=== PATIENT | male | born 1980 | race Caucasian/White ===

== ENCOUNTER 2017-07-18 21:41 | Emergency (ER) | payer OTHER | END 2017-07-18 23:59 | disposition home or self-care (01) | LOC: FTE 23:59 | DX: H66.91 Otitis media, unspecified, right ear (principal) | CPT/HCPCS: 99283 ==

== ENCOUNTER 2018-10-20 23:43 | Inpatient (IN) | payer OTHER ==
[2018-10-21] MEDS: ONDANSETRON 4 MG INJ IV (00:32)
[2018-10-21] MEDS: morphine 4 MG/ML VIAL IV (00:32)
[2018-10-21] MEDS: SODIUM CHLORIDE 0.9% 1L BAG IV* (00:33)
[2018-10-21 00:42] LABS: ADD MAN DIFF? NO
[2018-10-21 00:47] LABS: WHITE BLOOD COUNT 21.2 10^3/ul (4.8-10.8)
[2018-10-21 00:47] LABS: BASOPHIL # 0.1 10^3/ul (0.0-0.1); BASOPHILS % 0.3 % (0.0-2.0); HEMATOCRIT 42.4 % (42.0-52.0); HEMOGLOBIN 14.8 g/dl (14.0-18.0); LYMPHOCYTES # 1.2 10^3/ul (0.8-2.9); LYMPHOCYTES % 5.6 % (15.0-51.0); MEAN CORPUSCULAR HEMOGLOBIN 30.6 pg (29.0-33.0); MEAN CORPUSCULAR HGB CONC 34.9 g/dl (32.0-37.0); MEAN CORPUSCULAR VOLUME 87.6 fl (82.0-101.0); MEAN PLATELET VOLUME 8.3 fl (7.4-10.4); MONOCYTE # 1.4 10^3/ul (0.3-0.9); MONOCYTES % 6.5 % (0.0-11.0); NEUTROPHIL # 18.4 10^3/ul (1.6-7.5); NEUTROPHILS % 86.9 % (39.0-77.0); PLATELET COUNT 453 10^3/UL (140-415); RED BLOOD COUNT 4.84 10^6/ul (4.70-6.10)
[2018-10-21 01:04] LABS: ALANINE AMINOTRANSFERASE 37 IU/L (13-69); ALBUMIN 4.1 g/dl (3.3-4.9); ALBUMIN/GLOBULIN RATIO 0.93; ALKALINE PHOSPHATASE 182 IU/L (42-121); ANION GAP 13 (5-13); ASPARTATE AMINO TRANSFERASE 40 IU/L (15-46); BILIRUBIN,INDIRECT 0.9 mg/dl (0-1.1); BILIRUBIN,TOTAL 0.9 mg/dl (0.2-1.3); BLOOD UREA NITROGEN 9 mg/dl (7-20); CALCIUM 9.7 mg/dl (8.4-10.2); CARBON DIOXIDE 31 mmol/L (21-31); CHLORIDE 90 mmol/L (97-110); CREATININE 0.75 mg/dl (0.61-1.24); Estimated GFR > 60 mL/min (>60); GLUCOSE 124 mg/dl (70-220); LIPASE 59 U/L (23-300); POTASSIUM 4.1 mmol/L (3.5-5.1); SODIUM 134 mmol/L (135-144); TOTAL PROTEIN 8.5 g/dl (6.1-8.1)
[2018-10-21] MEDS: SOD CHLORIDE 0.9% 500 ML IV (01:05)
[2018-10-21 01:07] LABS: INR 1.18; PARTIAL THROMBOPLASTIN TIME 33.5 Sec (23.0-35.0); PROTIME 15.1 Sec (11.9-14.9); PT RATIO 1.2
[2018-10-21 01:15] LABS: TROPONIN-I < 0.012 ng/ml (0.000-0.120)
[2018-10-21] MEDS: PIPER-TAZO 3.375 GM IV (PMX) 100 ML IVPB ×4 (01:45→20:37)
[2018-10-21] MEDS ORDERED: HYDROmorphONE 1 MG/ML SYG (02:09)
[2018-10-21] MEDS: HYDROmorphONE 1 MG/ML SYG IV (02:14)
[2018-10-21] MEDS: VANCOMYCIN 1 GM (PMX) 250 ML IVPB (02:33)
[2018-10-21] MEDS ORDERED: ONDANSETRON 4 MG INJ IV ×3 (03:00→18:00)
[2018-10-21] MEDS: SOD CHLORIDE 0.9% 1,000 ML IV ×2 (03:27→15:54)
[2018-10-21] MEDS ORDERED: VANCOMYCIN IV PER PHARMACY XX (03:30)
[2018-10-21] MEDS ORDERED: ALBUTEROL/IPRATROPIUM (NEB) 3 ML AMP HHN (04:00)
[2018-10-21] MEDS: morphine 2 MG INJ IV ×2 (04:19→08:25)
[2018-10-21] MEDS: morphine 10 MG INJ IV ×3 (05:47→13:57)
[2018-10-21 06:10] LABS: LACTIC ACID 2.6 mmol/L (0.5-2.0)
[2018-10-21] MEDS: IOHEXOL 300MG/ML 150 ML BTL (13:25)
[2018-10-21] MEDS: SOD CHLORIDE 0.9% 100 ML (13:25)
[2018-10-21] MEDS: VANCOMYCIN HCL 1.25 GM in SOD CHLORIDE 0.9% 250 ML IVPB (13:59)
[2018-10-21] MEDS ORDERED: FENTAnyl 50 MCG/ML VIAL (17:50)
[2018-10-21] MEDS ORDERED: ONDANSETRON 4 MG INJ (17:50)
[2018-10-21] MEDS ORDERED: DEXAMETHASONE 4 MG/ML 5 ML INJ (17:50)
[2018-10-21] MEDS ORDERED: ROCURONIUM 50 MG INJ (17:50)
[2018-10-21] MEDS ORDERED: PROPOFOL 20 ML (17:50)
[2018-10-21] MEDS ORDERED: CEFAZOLIN 1 GM INJ (17:50)
[2018-10-21] MEDS ORDERED: MIDAZOLAM 1 MG/ML 2 ML INJ (17:50)
[2018-10-21] MEDS ORDERED: NEOSTIGMINE 3 MG/3 ML SYRINGE (17:50)
[2018-10-21] MEDS ORDERED: GLYCOPYRROLATE 0.4 MG INJ (17:50)
[2018-10-21] MEDS ORDERED: FENTAnyl 50 MCG/ML VIAL IV ×3 (18:00)
[2018-10-21] MEDS ORDERED: TRIMETHOBENZAMIDE 100 MG/ML VIAL IM (18:00)
[2018-10-21] MEDS ORDERED: LABETALOL HCL 20MG INJ IV (18:00)
[2018-10-21] MEDS ORDERED: DESFLURANE 15 MIN (18:00)
[2018-10-21] MEDS ORDERED: MEPERIDINE 25 MG INJ IV (18:00)
[2018-10-21] MEDS ORDERED: HYDROmorphONE 1 MG/5 ML IV SYRINGE IV ×3 (18:00)
[2018-10-21] MEDS ORDERED: DIPHENHYDRAMINE 50 MG INJ IV (18:00)
[2018-10-21] MEDS ORDERED: OXYCODONE/ACETAMINOPHEN (5/325) TAB PO ×2 (18:00)
[2018-10-21] MEDS ORDERED: hydrALAzine 20 MG INJ IV (18:00)
[2018-10-21] MEDS ORDERED: ALBUTEROL 0.083% (NEB) 2.5 MG/3 ML AMP HHN (18:00)
[2018-10-21] MEDS ORDERED: ACETAMINOPHEN 325 MG TAB PO (18:00)
[2018-10-21] MEDS ORDERED: EPHEDrine 25 MG/5 ML SYG IV (18:00)
[2018-10-21] MEDS ORDERED: IPRATROPIUM (NEB) 0.5 MG/2.5 ML AMP HHN (18:00)
[2018-10-21] MEDS: MIDAZOLAM 1 MG/ML 2 ML INJ IV (18:47)
[2018-10-21] MEDS: D5-NS + KCL 20 MEQ 1,000 ML IV (20:37)
[2018-10-22] MEDS: PIPER-TAZO 3.375 GM IV (PMX) 100 ML IVPB ×4 (00:38→17:54)
[2018-10-22] MEDS: morphine 2 MG INJ IV ×9 (00:39→23:10)
[2018-10-22] MEDS: VANCOMYCIN HCL 1.25 GM in SOD CHLORIDE 0.9% 250 ML IVPB ×2 (02:40→14:17)
[2018-10-22 05:48] LABS: ADD MAN DIFF? NO
[2018-10-22 05:54] LABS: WHITE BLOOD COUNT 14.1 10^3/ul (4.8-10.8)
[2018-10-22 05:54] LABS: BASOPHILS % 0.3 % (0.0-2.0); EOSINOPHILS # 0.1 10^3/ul (0.0-0.5); EOSINOPHILS % 0.4 % (0.0-7.0); HEMATOCRIT 33.2 % (42.0-52.0); LYMPHOCYTES # 1.6 10^3/ul (0.8-2.9); LYMPHOCYTES % 11.1 % (15.0-51.0); MEAN CORPUSCULAR HEMOGLOBIN 30.1 pg (29.0-33.0); MEAN CORPUSCULAR HGB CONC 33.1 g/dl (32.0-37.0); MEAN CORPUSCULAR VOLUME 90.7 fl (82.0-101.0); MEAN PLATELET VOLUME 8.5 fl (7.4-10.4); MONOCYTE # 1.3 10^3/ul (0.3-0.9); MONOCYTES % 8.9 % (0.0-11.0); NEUTROPHIL # 11.1 10^3/ul (1.6-7.5); NEUTROPHILS % 78.7 % (39.0-77.0); PLATELET COUNT 413 10^3/UL (140-415); RED BLOOD COUNT 3.66 10^6/ul (4.70-6.10); RED CELL DISTRIBUTION WIDTH 12.7 % (11.5-14.5)
[2018-10-22] MEDS: ENOXAPARIN 40 MG/0.4 ML SYG SC (06:06)
[2018-10-22] MEDS: D5-NS + KCL 20 MEQ 1,000 ML IV ×3 (06:09→20:21)
[2018-10-22 06:29] LABS: ALANINE AMINOTRANSFERASE 27 IU/L (13-69); ALBUMIN 2.7 g/dl (3.3-4.9); ALBUMIN/GLOBULIN RATIO 0.87; ALKALINE PHOSPHATASE 96 IU/L (42-121); ANION GAP 8 (5-13); ASPARTATE AMINO TRANSFERASE 27 IU/L (15-46); BILIRUBIN,INDIRECT 0.3 mg/dl (0-1.1); BILIRUBIN,TOTAL 0.3 mg/dl (0.2-1.3); BLOOD UREA NITROGEN 14 mg/dl (7-20); CALCIUM 7.8 mg/dl (8.4-10.2); CARBON DIOXIDE 29 mmol/L (21-31); CHLORIDE 99 mmol/L (97-110); CREATININE 0.88 mg/dl (0.61-1.24); Estimated GFR > 60 mL/min (>60); GLUCOSE 86 mg/dl (70-220); MAGNESIUM 1.8 mg/dl (1.7-2.5); PHOSPHORUS 3.8 mg/dl (2.5-4.9); POTASSIUM 3.9 mmol/L (3.5-5.1); SODIUM 136 mmol/L (135-144); TOTAL PROTEIN 5.8 g/dl (6.1-8.1)
[2018-10-22 06:46] LABS: HEMOGLOBIN A1C 5.7 % (0-5.9)
[2018-10-22 06:51] LABS: THYROID STIMULATING HORMONE 0.541 MIU/L (0.465-4.680)
[2018-10-22 14:03] LABS: VANCOMYCIN,TROUGH 5.8 ug/ml (10.0-20.0)
[2018-10-22] MEDS: HYDROCODONE/APAP (10/325) TAB PO (18:18)
[2018-10-22] MEDS: LORAZEPAM 2 MG INJ IV (18:40)
[2018-10-22] MEDS: VANCOMYCIN 1 GM 250 ML IVPB (21:04)
[2018-10-23] MEDS: PIPER-TAZO 3.375 GM IV (PMX) 100 ML IVPB ×4 (00:36→18:14)
[2018-10-23] MEDS: LORAZEPAM 2 MG INJ IV ×4 (00:36→22:59)
[2018-10-23] MEDS: morphine 2 MG INJ IV ×5 (02:52→17:00)
[2018-10-23 05:57] LABS: ADD MAN DIFF? NO
[2018-10-23 06:02] LABS: WHITE BLOOD COUNT 14.9 10^3/ul (4.8-10.8)
[2018-10-23 06:02] LABS: ABNORMAL IP MESSAGE 1; BASOPHIL # 0.1 10^3/ul (0.0-0.1); BASOPHILS % 0.5 % (0.0-2.0); EOSINOPHILS # 0.2 10^3/ul (0.0-0.5); EOSINOPHILS % 1.5 % (0.0-7.0); HEMOGLOBIN 11.2 g/dl (14.0-18.0); LYMPHOCYTES # 1.6 10^3/ul (0.8-2.9); MEAN CORPUSCULAR HEMOGLOBIN 30.8 pg (29.0-33.0); MEAN CORPUSCULAR HGB CONC 33.9 g/dl (32.0-37.0); MEAN CORPUSCULAR VOLUME 90.7 fl (82.0-101.0); MEAN PLATELET VOLUME 8.4 fl (7.4-10.4); MONOCYTE # 1.6 10^3/ul (0.3-0.9); MONOCYTES % 10.5 % (0.0-11.0); NEUTROPHIL # 11.3 10^3/ul (1.6-7.5); NEUTROPHILS % 75.8 % (39.0-77.0); PLATELET COUNT 415 10^3/UL (140-415); POSITIVE DIFF @See below; RED BLOOD COUNT 3.64 10^6/ul (4.70-6.10); RED CELL DISTRIBUTION WIDTH 12.2 % (11.5-14.5)
[2018-10-23] MEDS: VANCOMYCIN 1 GM 250 ML IVPB ×3 (06:09→22:06)
[2018-10-23] MEDS: ENOXAPARIN 40 MG/0.4 ML SYG SC (06:13)
[2018-10-23 06:26] LABS: ANION GAP 6 (5-13); BLOOD UREA NITROGEN 7 mg/dl (7-20); CALCIUM 8.1 mg/dl (8.4-10.2); CARBON DIOXIDE 28 mmol/L (21-31); CHLORIDE 105 mmol/L (97-110); CREATININE 0.63 mg/dl (0.61-1.24); Estimated GFR > 60 mL/min (>60); GLUCOSE 99 mg/dl (70-220); POTASSIUM 3.3 mmol/L (3.5-5.1); SODIUM 139 mmol/L (135-144)
[2018-10-23] MEDS: POTASSIUM CHLORIDE (SR) 20 MEQ TAB PO (13:42)
[2018-10-23] MEDS: D5-NS + KCL 20 MEQ 1,000 ML IV ×2 (14:48→23:01)
[2018-10-23] MEDS: HYDROCODONE/APAP (10/325) TAB PO (20:24)
[2018-10-23 21:42] LABS: VANCOMYCIN,TROUGH 9.4 ug/ml (10.0-20.0)
[2018-10-24] MEDS: PIPER-TAZO 3.375 GM IV (PMX) 100 ML IVPB ×3 (00:33→12:37)
[2018-10-24] MEDS: morphine 2 MG INJ IV ×4 (04:33→21:46)
[2018-10-24 05:25] LABS: ADD MAN DIFF? NO
[2018-10-24 05:29] LABS: WHITE BLOOD COUNT 17.3 10^3/ul (4.8-10.8)
[2018-10-24 05:30] LABS: ABNORMAL IP MESSAGE 1; BASOPHIL # 0.1 10^3/ul (0.0-0.1); BASOPHILS % 0.3 % (0.0-2.0); EOSINOPHILS # 0.2 10^3/ul (0.0-0.5); EOSINOPHILS % 1.4 % (0.0-7.0); HEMATOCRIT 32.5 % (42.0-52.0); HEMOGLOBIN 10.8 g/dl (14.0-18.0); LYMPHOCYTES # 1.5 10^3/ul (0.8-2.9); LYMPHOCYTES % 8.9 % (15.0-51.0); MEAN CORPUSCULAR HEMOGLOBIN 29.6 pg (29.0-33.0); MEAN CORPUSCULAR HGB CONC 33.2 g/dl (32.0-37.0); MEAN PLATELET VOLUME 8.2 fl (7.4-10.4); MONOCYTE # 1.6 10^3/ul (0.3-0.9); MONOCYTES % 9.5 % (0.0-11.0); NEUTROPHIL # 13.7 10^3/ul (1.6-7.5); NEUTROPHILS % 78.8 % (39.0-77.0); PLATELET COUNT 428 10^3/UL (140-415); POSITIVE DIFF @See below; RED BLOOD COUNT 3.65 10^6/ul (4.70-6.10); RED CELL DISTRIBUTION WIDTH 12.4 % (11.5-14.5)
[2018-10-24] MEDS: LORAZEPAM 2 MG INJ IV ×3 (05:56→23:53)
[2018-10-24 05:59] LABS: ANION GAP 7 (5-13); BLOOD UREA NITROGEN 3 mg/dl (7-20); CALCIUM 8.2 mg/dl (8.4-10.2); CARBON DIOXIDE 25 mmol/L (21-31); CHLORIDE 106 mmol/L (97-110); CREATININE 0.65 mg/dl (0.61-1.24); Estimated GFR > 60 mL/min (>60); GLUCOSE 109 mg/dl (70-220); POTASSIUM 3.7 mmol/L (3.5-5.1); SODIUM 138 mmol/L (135-144)
[2018-10-24] MEDS: VANCOMYCIN HCL 1.25 GM in SOD CHLORIDE 0.9% 250 ML IVPB (06:21)
[2018-10-24] MEDS: ENOXAPARIN 40 MG/0.4 ML SYG SC (06:27)
[2018-10-24] MEDS: HYDROCODONE/APAP (10/325) TAB PO ×2 (07:42→18:21)
[2018-10-24] MEDS: LEVOFLOXACIN 750 MG TABLET PO (14:56)
[2018-10-24] MEDS: CEFAZOLIN 1 GM/50 ML (PMX) 50 ML IVPB ×2 (18:15→23:53)
[2018-10-25] MEDS: morphine 2 MG INJ IV ×6 (01:18→22:17)
[2018-10-25] MEDS: HYDROCODONE/APAP (10/325) TAB PO ×2 (03:43→20:48)
[2018-10-25 05:35] LABS: ADD MAN DIFF? NO
[2018-10-25 05:41] LABS: BASOPHIL # 0.1 10^3/ul (0.0-0.1); BASOPHILS % 0.4 % (0.0-2.0); EOSINOPHILS # 0.2 10^3/ul (0.0-0.5); EOSINOPHILS % 1.4 % (0.0-7.0); HEMATOCRIT 31.4 % (42.0-52.0); HEMOGLOBIN 10.5 g/dl (14.0-18.0); LYMPHOCYTES # 1.8 10^3/ul (0.8-2.9); LYMPHOCYTES % 12.3 % (15.0-51.0); MEAN CORPUSCULAR HEMOGLOBIN 30.6 pg (29.0-33.0); MEAN CORPUSCULAR HGB CONC 33.4 g/dl (32.0-37.0); MEAN CORPUSCULAR VOLUME 91.5 fl (82.0-101.0); MEAN PLATELET VOLUME 8.2 fl (7.4-10.4); MONOCYTE # 1.3 10^3/ul (0.3-0.9); MONOCYTES % 8.6 % (0.0-11.0); NEUTROPHIL # 11.1 10^3/ul (1.6-7.5); NEUTROPHILS % 76.2 % (39.0-77.0); PLATELET COUNT 395 10^3/UL (140-415); RED BLOOD COUNT 3.43 10^6/ul (4.70-6.10); RED CELL DISTRIBUTION WIDTH 12.8 % (11.5-14.5)
[2018-10-25 05:41] LABS: WHITE BLOOD COUNT 14.6 10^3/ul (4.8-10.8)
[2018-10-25] MEDS: CEFAZOLIN 1 GM/50 ML (PMX) 50 ML IVPB ×4 (06:16→23:57)
[2018-10-25] MEDS: LEVOFLOXACIN 750 MG TABLET PO (06:16)
[2018-10-25] MEDS: ENOXAPARIN 40 MG/0.4 ML SYG SC (06:22)
[2018-10-25] MEDS: NACL 0.9% 3 ML SYG IV (08:32)
[2018-10-25] MEDS: LORAZEPAM 2 MG INJ IV ×3 (11:43→23:57)
[2018-10-26] MEDS: morphine 2 MG INJ IV ×3 (03:32→11:39)
[2018-10-26] MEDS: HYDROCODONE/APAP (10/325) TAB PO (04:05)
[2018-10-26] MEDS: LEVOFLOXACIN 750 MG TABLET PO (06:15)
[2018-10-26] MEDS: CEFAZOLIN 1 GM/50 ML (PMX) 50 ML IVPB ×2 (06:15→11:46)
[2018-10-26] MEDS: ENOXAPARIN 40 MG/0.4 ML SYG SC (06:16)
[2018-10-26] MEDS: LORAZEPAM 2 MG INJ IV ×2 (06:20→12:34)
[2018-10-26] MEDS: NACL 0.9% 3 ML SYG IV (11:46)
== END 2018-10-26 14:45 | disposition left against medical advice (07) | DRG 853 ==
LOC: E/R 23:43 → 2NE 10-21 02:21
PROVIDERS: Internal Medicine
PROC: 0J990ZZ Drainage of Buttock Subcutaneous Tissue and Fascia, Open Approach (ICD-10-PCS; principal; 2018-10-21 17:46)
DX: A41.9 Sepsis, unspecified organism (principal); J18.9 Pneumonia, unspecified organism; L02.31 Cutaneous abscess of buttock; F11.20 Opioid dependence, uncomplicated; Z72.0 Tobacco use
CPT/HCPCS: 71045; 73510; 74177; 80048; 80053; 80202; 83036; 83605; 83690; 83735; 84100; 84443; 84484; 85025; 85610; 85730; 87040-91; 87070; 87075; 87102; 93005

== ENCOUNTER 2018-10-28 16:11 | Inpatient (IN) | payer OTHER ==
[2018-10-28 19:48] LABS: ADD MAN DIFF? NO
[2018-10-28] MEDS: morphine 4 MG/ML VIAL IV (19:49)
[2018-10-28] MEDS: SOD CHLORIDE 0.9% 1,000 ML IV (19:49)
[2018-10-28] MEDS: PIPER-TAZO 3.375 GM IV (PMX) 100 ML IVPB (19:49)
[2018-10-28] MEDS: IBUPROFEN 600 MG TAB PO (19:49)
[2018-10-28] MEDS: ONDANSETRON 4 MG INJ IV (19:49)
[2018-10-28 19:51] LABS: ABNORMAL IP MESSAGE 1; BASOPHIL # 0.1 10^3/ul (0.0-0.1); BASOPHILS % 0.4 % (0.0-2.0); EOSINOPHILS # 0.2 10^3/ul (0.0-0.5); EOSINOPHILS % 0.8 % (0.0-7.0); HEMATOCRIT 32.9 % (42.0-52.0); HEMOGLOBIN 10.7 g/dl (14.0-18.0); LYMPHOCYTES # 2.2 10^3/ul (0.8-2.9); LYMPHOCYTES % 10.4 % (15.0-51.0); MEAN CORPUSCULAR HEMOGLOBIN 30.2 pg (29.0-33.0); MEAN CORPUSCULAR HGB CONC 32.5 g/dl (32.0-37.0); MEAN CORPUSCULAR VOLUME 92.9 fl (82.0-101.0); MEAN PLATELET VOLUME 7.9 fl (7.4-10.4); MONOCYTE # 1.8 10^3/ul (0.3-0.9); MONOCYTES % 8.8 % (0.0-11.0); NEUTROPHIL # 16.3 10^3/ul (1.6-7.5); NEUTROPHILS % 78.3 % (39.0-77.0); PLATELET COUNT 446 10^3/UL (140-415); POSITIVE DIFF @See below; RED BLOOD COUNT 3.54 10^6/ul (4.70-6.10)
[2018-10-28 19:51] LABS: WHITE BLOOD COUNT 20.8 10^3/ul (4.8-10.8)
[2018-10-28 20:11] LABS: INR 1.07; PT RATIO 1.1
[2018-10-28 20:12] LABS: PARTIAL THROMBOPLASTIN TIME 34.6 Sec (23.0-35.0)
[2018-10-28] MEDS: CEFTRIAXONE 1 GM/50 ML (PMX) 50 ML IVPB (20:14)
[2018-10-28 20:27] LABS: ALANINE AMINOTRANSFERASE 97 IU/L (13-69); ALBUMIN 3.5 g/dl (3.3-4.9); ALBUMIN/GLOBULIN RATIO 0.87; ALKALINE PHOSPHATASE 137 IU/L (42-121); ANION GAP 8 (5-13); ASPARTATE AMINO TRANSFERASE 59 IU/L (15-46); BILIRUBIN,INDIRECT 0.3 mg/dl (0-1.1); BILIRUBIN,TOTAL 0.3 mg/dl (0.2-1.3); BLOOD UREA NITROGEN 18 mg/dl (7-20); CALCIUM 8.6 mg/dl (8.4-10.2); CARBON DIOXIDE 32 mmol/L (21-31); CHLORIDE 96 mmol/L (97-110); CREATININE 0.86 mg/dl (0.61-1.24); Estimated GFR > 60 mL/min (>60); GLUCOSE 75 mg/dl (70-220); LIPASE 46 U/L (23-300); POTASSIUM 3.9 mmol/L (3.5-5.1); SODIUM 136 mmol/L (135-144); TOTAL PROTEIN 7.5 g/dl (6.1-8.1)
[2018-10-28] MEDS ORDERED: NACL 0.9% 3 ML SYG IV (20:30)
[2018-10-28] MEDS ORDERED: DOCUSATE SODIUM 100 MG CAP PO (20:30)
[2018-10-28] MEDS ORDERED: ACETAMINOPHEN 325 MG TAB PO (20:30)
[2018-10-28] MEDS ORDERED: VANCOMYCIN IV PER PHARMACY XX (20:30)
[2018-10-28] MEDS ORDERED: BISACODYL (EC) 5 MG TAB PO (20:30)
[2018-10-28] MEDS ORDERED: ONDANSETRON 4 MG INJ IV (20:30)
[2018-10-28] MEDS: VANCOMYCIN 1 GM (PMX) 250 ML IVPB (20:52)
[2018-10-28 21:25] LABS: ERYTHROCYTE SEDIMENTATION RATE 70 mm/Hr (0-15)
[2018-10-29] MEDS: SOD CHLORIDE 0.9% 1,000 ML IV ×3 (01:17→20:36)
[2018-10-29] MEDS: PIPER-TAZO 3.375 GM IV (PMX) 100 ML IVPB ×5 (01:18→22:58)
[2018-10-29 06:06] LABS: ADD MAN DIFF? NO
[2018-10-29] MEDS: morphine 2 MG INJ IV ×4 (06:09→22:59)
[2018-10-29] MEDS: VANCOMYCIN 1 GM 250 ML IVPB ×3 (06:10→20:36)
[2018-10-29 06:14] LABS: BASOPHIL # 0.1 10^3/ul (0.0-0.1); BASOPHILS % 0.4 % (0.0-2.0); EOSINOPHILS # 0.2 10^3/ul (0.0-0.5); HEMATOCRIT 29.3 % (42.0-52.0); HEMOGLOBIN 9.4 g/dl (14.0-18.0); LYMPHOCYTES # 1.6 10^3/ul (0.8-2.9); LYMPHOCYTES % 9.7 % (15.0-51.0); MEAN CORPUSCULAR HEMOGLOBIN 30.4 pg (29.0-33.0); MEAN CORPUSCULAR HGB CONC 32.1 g/dl (32.0-37.0); MEAN CORPUSCULAR VOLUME 94.8 fl (82.0-101.0); MONOCYTE # 1.4 10^3/ul (0.3-0.9); MONOCYTES % 8.1 % (0.0-11.0); NEUTROPHIL # 13.6 10^3/ul (1.6-7.5); NEUTROPHILS % 80.2 % (39.0-77.0); PLATELET COUNT 360 10^3/UL (140-415); RED BLOOD COUNT 3.09 10^6/ul (4.70-6.10); RED CELL DISTRIBUTION WIDTH 13.2 % (11.5-14.5)
[2018-10-29 06:36] LABS: ALANINE AMINOTRANSFERASE 81 IU/L (13-69); ALBUMIN 2.8 g/dl (3.3-4.9); ALKALINE PHOSPHATASE 124 IU/L (42-121); ANION GAP 4 (5-13); ASPARTATE AMINO TRANSFERASE 40 IU/L (15-46); BILIRUBIN,INDIRECT 0.4 mg/dl (0-1.1); BILIRUBIN,TOTAL 0.4 mg/dl (0.2-1.3); BLOOD UREA NITROGEN 13 mg/dl (7-20); CALCIUM 8.4 mg/dl (8.4-10.2); CARBON DIOXIDE 33 mmol/L (21-31); CHLORIDE 102 mmol/L (97-110); CREATININE 0.68 mg/dl (0.61-1.24); Estimated GFR > 60 mL/min (>60); GLUCOSE 102 mg/dl (70-220); MAGNESIUM 2.1 mg/dl (1.7-2.5); POTASSIUM 5.3 mmol/L (3.5-5.1); SODIUM 139 mmol/L (135-144); TOTAL PROTEIN 6.3 g/dl (6.1-8.1)
[2018-10-29 06:57] LABS: C-REACTIVE PROTEIN 14.2 mg/dl (0.0-0.9)
[2018-10-29 07:32] LABS: ERYTHROCYTE SEDIMENTATION RATE 61 mm/Hr (0-15)
[2018-10-29] MEDS: SILVER NITRATE SWAB TOP (14:30)
[2018-10-29] MEDS: LIDOCAINE 2%/EPI (MDV) 20ML INJ INJ (14:30)
[2018-10-29] MEDS: HYDROmorphONE 1 MG/ML SYG IV (18:22)
[2018-10-30] MEDS: PIPER-TAZO 3.375 GM IV (PMX) 100 ML IVPB ×3 (05:31→18:53)
[2018-10-30 06:46] LABS: VANCOMYCIN,TROUGH 10.6 ug/ml (10.0-20.0)
[2018-10-30] MEDS: VANCOMYCIN 1 GM 250 ML IVPB ×3 (07:22→22:04)
[2018-10-30] MEDS: SOD CHLORIDE 0.9% 1,000 ML IV (10:36)
[2018-10-30 14:41] LABS: ADD MAN DIFF? NO
[2018-10-30 14:42] LABS: BASOPHILS % 0.5 % (0.0-2.0); EOSINOPHILS # 0.2 10^3/ul (0.0-0.5); EOSINOPHILS % 2.2 % (0.0-7.0); HEMATOCRIT 29.6 % (42.0-52.0); HEMOGLOBIN 9.6 g/dl (14.0-18.0); LYMPHOCYTES % 24.1 % (15.0-51.0); MEAN CORPUSCULAR HEMOGLOBIN 30.1 pg (29.0-33.0); MEAN CORPUSCULAR HGB CONC 32.4 g/dl (32.0-37.0); MEAN CORPUSCULAR VOLUME 92.8 fl (82.0-101.0); MEAN PLATELET VOLUME 8.3 fl (7.4-10.4); MONOCYTE # 0.6 10^3/ul (0.3-0.9); MONOCYTES % 7.9 % (0.0-11.0); NEUTROPHIL # 5.2 10^3/ul (1.6-7.5); NEUTROPHILS % 64.6 % (39.0-77.0); PLATELET COUNT 406 10^3/UL (140-415); RED BLOOD COUNT 3.19 10^6/ul (4.70-6.10); RED CELL DISTRIBUTION WIDTH 12.7 % (11.5-14.5)
[2018-10-30 14:42] LABS: WHITE BLOOD COUNT 8.1 10^3/ul (4.8-10.8)
[2018-10-30] MEDS: HYDROCODONE/APAP (5/325) TAB PO (15:56)
[2018-10-30] MEDS: DAKINS 0.0125%(1/40) 473 ML SOLUTION TP (15:56)
[2018-10-31] MEDS: PIPER-TAZO 3.375 GM IV (PMX) 100 ML IVPB ×4 (00:18→18:14)
[2018-10-31] MEDS: SOD CHLORIDE 0.9% 1,000 ML IV ×2 (00:18→15:12)
[2018-10-31] MEDS: VANCOMYCIN 1 GM 250 ML IVPB ×3 (06:55→21:51)
[2018-10-31 07:40] LABS: ADD MAN DIFF? NO
[2018-10-31 07:57] LABS: BASOPHILS % 0.5 % (0.0-2.0); EOSINOPHILS # 0.1 10^3/ul (0.0-0.5); EOSINOPHILS % 1.9 % (0.0-7.0); HEMATOCRIT 29.6 % (42.0-52.0); HEMOGLOBIN 9.5 g/dl (14.0-18.0); LYMPHOCYTES # 1.3 10^3/ul (0.8-2.9); LYMPHOCYTES % 17.8 % (15.0-51.0); MEAN CORPUSCULAR HEMOGLOBIN 29.9 pg (29.0-33.0); MEAN CORPUSCULAR HGB CONC 32.1 g/dl (32.0-37.0); MEAN CORPUSCULAR VOLUME 93.1 fl (82.0-101.0); MEAN PLATELET VOLUME 8.1 fl (7.4-10.4); MONOCYTE # 0.7 10^3/ul (0.3-0.9); MONOCYTES % 9.3 % (0.0-11.0); NEUTROPHIL # 5.2 10^3/ul (1.6-7.5); NEUTROPHILS % 68.6 % (39.0-77.0); PLATELET COUNT 463 10^3/UL (140-415); RED BLOOD COUNT 3.18 10^6/ul (4.70-6.10); RED CELL DISTRIBUTION WIDTH 12.5 % (11.5-14.5)
[2018-10-31 07:57] LABS: WHITE BLOOD COUNT 7.5 10^3/ul (4.8-10.8)
[2018-10-31 08:39] LABS: ALANINE AMINOTRANSFERASE 60 IU/L (13-69); ALBUMIN 2.8 g/dl (3.3-4.9); ALBUMIN/GLOBULIN RATIO 0.87; ALKALINE PHOSPHATASE 118 IU/L (42-121); ANION GAP 6 (5-13); ASPARTATE AMINO TRANSFERASE 18 IU/L (15-46); BILIRUBIN,INDIRECT 0.2 mg/dl (0-1.1); BILIRUBIN,TOTAL 0.2 mg/dl (0.2-1.3); BLOOD UREA NITROGEN 9 mg/dl (7-20); CALCIUM 8.5 mg/dl (8.4-10.2); CARBON DIOXIDE 29 mmol/L (21-31); CHLORIDE 104 mmol/L (97-110); CREATININE 0.64 mg/dl (0.61-1.24); Estimated GFR > 60 mL/min (>60); GLUCOSE 100 mg/dl (70-220); PHOSPHORUS 3.3 mg/dl (2.5-4.9); POTASSIUM 4.3 mmol/L (3.5-5.1); SODIUM 139 mmol/L (135-144)
[2018-10-31] MEDS: DAKINS 0.0125%(1/40) 473 ML SOLUTION TP (09:00)
[2018-10-31 09:02] LABS: HEPATITIS B SURFACE ANTIBODY NEGATIVE (NEGATIVE)
[2018-10-31 09:11] LABS: HEPATITIS B SURFACE ANTIGEN NEGATIVE (NEGATIVE)
[2018-10-31 09:27] LABS: HEPATITIS B CORE ANTIBODY NEGATIVE (NEGATIVE)
[2018-10-31] MEDS: morphine 2 MG INJ IV ×2 (16:13→23:07)
[2018-10-31] MEDS: HYDROCODONE/APAP (5/325) TAB PO (16:13)
[2018-10-31 18:21] LABS: HEPATITIS C VIRAL ANTIBODY NEGATIVE (NEGATIVE)
[2018-10-31 21:26] LABS: VANCOMYCIN,TROUGH 17.2 ug/ml (10.0-20.0)
[2018-10-31] MEDS ORDERED: LORAZEPAM 2 MG INJ IV (23:00)
[2018-10-31] MEDS: MICONAZOLE 2% 30 GM CR TOP ×2 (23:06→23:07)
[2018-11-01] MEDS: PIPER-TAZO 3.375 GM IV (PMX) 100 ML IVPB ×3 (00:31→12:58)
[2018-11-01] MEDS: SOD CHLORIDE 0.9% 1,000 ML IV (02:47)
[2018-11-01] MEDS: VANCOMYCIN 1 GM 250 ML IVPB (06:04)
[2018-11-01] MEDS: MICONAZOLE 2% 30 GM CR TOP ×2 (08:50→20:10)
[2018-11-01] MEDS: DAKINS 0.0125%(1/40) 473 ML SOLUTION TP (09:00)
[2018-11-01] MEDS: METHADONE (1 MG/ML 5 ML PO UD SYG) PO (09:18)
[2018-11-01] MEDS: VANCOMYCIN 750 MG (PMX) 250 ML IVPB (13:43)
[2018-11-01 16:51] LABS: ADD MAN DIFF? NO
[2018-11-01 16:54] LABS: BASOPHIL # 0.1 10^3/ul (0.0-0.1); BASOPHILS % 0.6 % (0.0-2.0); EOSINOPHILS # 0.3 10^3/ul (0.0-0.5); HEMOGLOBIN 8.6 g/dl (14.0-18.0); LYMPHOCYTES # 2.2 10^3/ul (0.8-2.9); LYMPHOCYTES % 25.8 % (15.0-51.0); MEAN CORPUSCULAR HEMOGLOBIN 30.2 pg (29.0-33.0); MEAN CORPUSCULAR HGB CONC 31.9 g/dl (32.0-37.0); MEAN CORPUSCULAR VOLUME 94.7 fl (82.0-101.0); MEAN PLATELET VOLUME 8.2 fl (7.4-10.4); MONOCYTE # 0.9 10^3/ul (0.3-0.9); MONOCYTES % 11.2 % (0.0-11.0); NEUTROPHIL # 4.8 10^3/ul (1.6-7.5); PLATELET COUNT 560 10^3/UL (140-415); RED BLOOD COUNT 2.85 10^6/ul (4.70-6.10); RED CELL DISTRIBUTION WIDTH 13.1 % (11.5-14.5)
[2018-11-01 16:54] LABS: WHITE BLOOD COUNT 8.3 10^3/ul (4.8-10.8)
[2018-11-01 17:24] LABS: ALANINE AMINOTRANSFERASE 54 IU/L (13-69); ALBUMIN 2.9 g/dl (3.3-4.9); ALBUMIN/GLOBULIN RATIO 0.82; ALKALINE PHOSPHATASE 98 IU/L (42-121); ANION GAP 3 (5-13); ASPARTATE AMINO TRANSFERASE 26 IU/L (15-46); BILIRUBIN,INDIRECT 0.2 mg/dl (0-1.1); BILIRUBIN,TOTAL 0.2 mg/dl (0.2-1.3); BLOOD UREA NITROGEN 12 mg/dl (7-20); CALCIUM 8.6 mg/dl (8.4-10.2); CARBON DIOXIDE 32 mmol/L (21-31); CHLORIDE 104 mmol/L (97-110); CREATININE 0.88 mg/dl (0.61-1.24); Estimated GFR > 60 mL/min (>60); GLUCOSE 91 mg/dl (70-220); POTASSIUM 4.3 mmol/L (3.5-5.1); SODIUM 139 mmol/L (135-144); TOTAL PROTEIN 6.4 g/dl (6.1-8.1)
[2018-11-01] MEDS: TRIMETHOPRIM/SULFAMETHOX (DS) TAB PO (20:09)
[2018-11-02 07:40] LABS: ADD MAN DIFF? NO
[2018-11-02 07:47] LABS: BASOPHIL # 0.1 10^3/ul (0.0-0.1); BASOPHILS % 0.6 % (0.0-2.0); EOSINOPHILS # 0.2 10^3/ul (0.0-0.5); EOSINOPHILS % 2.5 % (0.0-7.0); HEMATOCRIT 32.7 % (42.0-52.0); HEMOGLOBIN 10.5 g/dl (14.0-18.0); LYMPHOCYTES % 23.3 % (15.0-51.0); MEAN CORPUSCULAR HEMOGLOBIN 29.9 pg (29.0-33.0); MEAN CORPUSCULAR HGB CONC 32.1 g/dl (32.0-37.0); MEAN CORPUSCULAR VOLUME 93.2 fl (82.0-101.0); MEAN PLATELET VOLUME 7.9 fl (7.4-10.4); MONOCYTE # 1.1 10^3/ul (0.3-0.9); MONOCYTES % 12.3 % (0.0-11.0); NEUTROPHIL # 5.1 10^3/ul (1.6-7.5); PLATELET COUNT 491 10^3/UL (140-415); RED BLOOD COUNT 3.51 10^6/ul (4.70-6.10); RED CELL DISTRIBUTION WIDTH 12.9 % (11.5-14.5)
[2018-11-02 07:47] LABS: WHITE BLOOD COUNT 8.5 10^3/ul (4.8-10.8)
[2018-11-02] MEDS: METHADONE (1 MG/ML 5 ML PO UD SYG) PO (09:10)
[2018-11-02] MEDS: TRIMETHOPRIM/SULFAMETHOX (DS) TAB PO (09:11)
[2018-11-02] MEDS: DAKINS 0.0125%(1/40) 473 ML SOLUTION TP (11:31)
[2018-11-02] MEDS: MICONAZOLE 2% 30 GM CR TOP (11:32)
[2018-11-02 12:15] LABS: IRON 44 ug/dl (35-150)
[2018-11-02 12:24] LABS: % IRON SATURATION 20 % SAT (22-52); TOTAL IRON BINDING CAPACITY 222 ug/dl (241-421)
== END 2018-11-02 17:16 | disposition home or self-care (01) | DRG 603 ==
LOC: E/R 16:11 → PP2 19:31
PROC: 0H98XZZ Drainage of Buttock Skin, External Approach (ICD-10-PCS; principal; 2018-10-29)
DX: L02.31 Cutaneous abscess of buttock (principal); F41.9 Anxiety disorder, unspecified; F32.9 Major depressive disorder, single episode, unspecified; F17.200 Nicotine dependence, unspecified, uncomplicated; J45.909 Unspecified asthma, uncomplicated; F11.90 Opioid use, unspecified, uncomplicated; D64.9 Anemia, unspecified; E87.5 Hyperkalemia; Z59.0 Homelessness
CPT/HCPCS: 36415; 76536; 80053; 80202; 82728; 83540; 83690; 83735; 84100; 85025; 85610; 85651; 85730; 86140; 86704; 86706; 86803; 87040-91; 87070; 87081; 87340; 99285-25

== ENCOUNTER 2018-11-06 12:52 | Emergency (ER) | payer OTHER ==
[2018-11-06] MEDS: LORAZEPAM 0.5 MG TAB PO (14:43)
== END 2018-11-06 14:44 | disposition home or self-care (01) ==
LOC: FTE 12:52
DX: F11.90 Opioid use, unspecified, uncomplicated (principal); F17.210 Nicotine dependence, cigarettes, uncomplicated
CPT/HCPCS: 99281; Z7502